=== PATIENT | female | born 1985 ===

== ENCOUNTER 2021-05-28 09:01 | Day surgery (SDC) | payer OTHER ==
[2021-05-28] MEDS ORDERED: SCOPOLAMINE HYDROBROMIDE PATCH TD ONE (09:50)
[2021-05-28] MEDS ORDERED: CEFAZOLIN/SWI 1gm 1 GM/10 ML SYR ONE (09:51)
[2021-05-28] MEDS ORDERED: Ringers Lactate 1,000 ML IV ONE ×2 (09:51→11:16)
[2021-05-28] MEDS ORDERED: propofoL 200 MG/20 ML VIAL IV ONE (10:06)
[2021-05-28] MEDS ORDERED: MIDAZOLAM HCL 2 MG/2 ML INJ ONE (10:06)
[2021-05-28] MEDS ORDERED: GLYCOPYRROLATE 0.2 MG/ML SYR ONE ×2 (10:06)
[2021-05-28] MEDS ORDERED: LIDOCAINE 2% MPF 5 ML VIAL ONE (10:07)
[2021-05-28] MEDS ORDERED: FENTANYL CITR 100 MCG/2 ML ONE ×3 (10:07→10:55)
[2021-05-28] MEDS ORDERED: ONDANSETRON 4 MG/2 ML VIAL ONE (10:07)
[2021-05-28] MEDS ORDERED: dexAMETHasone 10 MG/ML VIAL ONE (10:07)
[2021-05-28] MEDS ORDERED: KETOROLAC 30 MG/ML INJ ONE (10:07)
[2021-05-28] MEDS ORDERED: ROCURONIUM 50 MG/5 ML VIAL IV ONE (10:07)
[2021-05-28] MEDS ORDERED: EPINEPHRINE/PF 1 MG/ML AMP ONE (10:11)
[2021-05-28] MEDS ORDERED: Mastisol Adhesive Liq ONE ×2 (11:25→11:35)
[2021-05-28] MEDS ORDERED: LABETALOL 20 MG/4ML SYRINGE IV ONE (11:25)
[2021-05-28] MEDS: HYDROMORPHONE HCL 1 MG/ML INJ ONE ×2 (11:48→11:53)
[2021-05-28] MEDS ORDERED: MEPERIDINE HCL 25 MG/ML SYR ONE (12:05)
[2021-05-28] MEDS ORDERED: HYDROCODONE/APAP 10/325 TAB ONE (13:45)
[2021-05-28 14:03] VITALS: TEMP 98; O2SAT 98
--- NOTE | 2021-05-28 14:28 | OP ---
Surgeon: El Marcus MD Preoperative Diagnosis: Lipodystrophy of the abdomen and flanks, hypermastia. Postoperative Diagnosis: Lipodystrophy of the abdomen and flanks, hypermastia. Procedure Performed: Liposuction of abdomen and flanks, 2000 mL in and 2000 mL out and fat transferr ed to the breast 275 left and 350 right. Anesthesia: General. Procedure In Detail: After satisfactory induction of general anesthesia, the patient was prepped wit h DuraPrep, dry sterile drapes were applied in the usual manner. A 15 blade was used to make incisio n in the anterior iliac spine region bilaterally and then was infused. The right flank, right abdome n, left flank, and left abdomen were each infused with 500 mL of saline with epinephrine and then a 4 mm cannula was used to aspirate. 500 mL were taken from the right and left abdomen, right flank and left flank. The wounds were then closed with 4-0 PDS suture. Incision was then made in the inframa mmary fold laterally. Liposuction was performed of the axillary fullness in the prepectoral region a bout 5 mL was removed from each side. Then, the same site was used for fat transfer. A 2.5 mm cannu la 275 in the left breast 350 in the right. Both wounds were then closed with 4-0 PDS ___ followed with fluffs and Kishore wrap on the breast. The patient tolerated the procedure well and returned to Recovery. JANET/LUTHER Voice ID: [id number] Report ID: [id number]
[2021-05-28 16:06] VITALS: BP 118/70
== END 2021-05-28 15:52 | disposition home or self-care (01) ==
LOC: OR 09:01
PROVIDERS: ATTEND Specialist
PROC: 0H0V07Z Alteration of Bilateral Breast with Autologous Tissue Substitute, Open Approach (ICD-10-PCS; principal; 2021-05-28 10:00)
DX: N64.82 Hypoplasia of breast (principal); E88.1 Lipodystrophy, not elsewhere classified; Z20.822 Contact with and (suspected) exposure to COVID-19
CPT/HCPCS: 81025; 15771; 15772 ×12; J2704; J0171; J2250; J3010 ×3; J1100; J2175; J1170; J0690; J7120 ×2; J2405